=== PATIENT | male | born 1960 | race Caucasian/White ===

== ENCOUNTER 2017-11-21 15:35 | Emergency (ER) | payer OTHER ==
[~2017-11-21] VITALS: Ht 180.3 cm; Wt 99.8 kg
[2017-11-21] MEDS ORDERED: LOSA50TA72 PO (15:42)
--- NOTE | 2017-11-21 15:43 | ER Report ---
History and Physical Time Seen By MD: 15:43 HPI/ROS CHIEF COMPLAINT: Headache HISTORY OF PRESENT ILLNESS: This is a 57-year-old male who presents to the emergency department for a headache. 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 Patient also states that since then he's had upper and lower back pain, as well as a left-sided headache, mild blurred vision to the left side as well as posterior scalp pain. Patient denies shortness of breath, chest pain, nausea, vomiting, diarrhea denies urinary symptoms. Patient also states that he did have a mild bloody nose out of the left nostril following the injury but has since then resolved. Patient also states that he's been taking some medication that has a lot of aspirin in it for his headache since yesterday. REVIEW OF SYSTEMS: Constitutional: No fever, no chills. Eyes: No discharge. ENT: No sore throat. Cardiovascular: No chest pain, no palpitations. Respiratory: No cough, no shortness of breath. Gastrointestinal: No abdominal pain, no vomiting. Genitourinary: No hematuria. Musculoskeletal: As above. Skin: No rashes. Neurological: As above. 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 Hypertension, diverticulitis, colectomy. Reviewed Nurses Notes: Yes Constitutional Vital Sign - Last 24 Hours 11/21/17 11/21/17 11/21/17 15:40 16:47 17:00 Temp 98.7 Pulse 100 59 Resp 18 B/P (MAP) 145/95 148/105 (119) 142/100 (114) Pulse Ox 95 90 O2 Delivery Room Air Physical Exam General Appearance: The patient is alert, has no immediate need for airway protection and no signs of toxicity. Eyes: Pupils equal and round no pallor or injection. ENT, Mouth: Mucous membranes are moist. No hemotympanum. Respiratory: There are no retractions, lungs are clear to auscultation. Cardiovascular: Regular rate and rhythm, no murmurs, clicks or rubs. Gastrointestinal: Abdomen is soft with tenderness to the right abdomen with palpation, no masses, bowel sounds normal. Neurological: Alert and oriented 4. Moving all x-rays. Following all commands. No focal neuro deficits. Cranial nerves II through XII intact. Skin: Warm and dry, no rashes. Musculoskeletal: C-spine tenderness, no crepitus or step-offs noted, thoracic and lumbar discomfort no crepitus, bruising or step-offs noted. Posterior head pain no depressions, crepitus or hematomas noted. Extremities Left elbow pain, is able to supinate and pronate. DIFFERENTIAL DIAGNOSIS: After history and physical exam differential diagnosis was considered for head injury including but not limited to concussion, skull fracture, intraparenchymal contusion, subarachnoid, subdural and epidural hematoma. Medical Decision Making EKG/Imaging Imaging [place] [facility] [place]: Cresencio Mann : 1960 Visit/Account:[id number] Date of Sevice: 11/21/2017 Exam type: THORACIC SPINE 3 VIEWS History: fall, back pain Comparison: None. Findings: There is no definitive acute fracture of the thoracic spine. Overlapping tissues are noted on the lateral film is normal AP alignment. Heart size appears slightly prominent. Lung parenchyma is unremarkable. Radiopaque density overlies the T9 vertebral body. IMPRESSION: 1. Slightly limited study due to overlapping soft tissues but no definite acute fracture of the thoracic spine. Report Dictated By: Jayson Hinds MD at 11/21/2017 4:53 PM Report E-Signed By: Jayson Hinds MD at 11/21/2017 4:55 PM WSN:[id number] [place] [facility] [place] Patient: Cresencio Mann : 1960 Visit/Account:[id number] Date of Sevice: 11/21/2017 Exam type: 3 views lumbar spine History: fall, back pain Comparison: None. Findings: There are 5 nonrib-bearing lumbar vertebral bodies. AP alignment is appropriate. No acute fracture. Degenerative changes are noted particularly L5- S1 with significant loss of joint space. Numerous surgical clips overlie the abdomen. Soft tissues demonstrate some possible stones overlying the right kidney. IMPRESSION: 1. No acute fracture of the lumbar spine. 2. Degenerative changes noted L5-S1. 3. Possible stones overlie the right kidney. Report Dictated By: Jayson Hinds MD at 11/21/2017 4:55 PM Report E-Signed By: Jayson Hinds MD at 11/21/2017 4:56 PM WSN:[id number] ED Course/Re-evaluation ED Course The patient was admitted to a room. A history of physical were obtained. Differential diagnoses were considered. Patient was placed in a c-collar upon arrival. A head CT were obtained. Thoracic and lumbar and left elbow x-ray were obtained. Patient was given 60 mg IM and Norflex, thousand milligrams by mouth Tylenol. The head and neck CT were negative for any acute findings. There were some chronic degenerative changes noted to the cervical spine. The thoracic and lumbar and elbow were unremarkable. The results were reviewed with the patient he was relieved that there were no acute findings. The patient was given a prescription for Robaxin. Is also instructed to take ibuprofen or Tylenol as needed for the pain. Patient was also instructed to follow-up with an orthopedist when he returns home. The patient was also instructed to follow up with the nearest emergency department if he has any other concerns. The patient had no other questions or concerns and was discharged home. Decision to Disposition Date: Nov 21, 2017 Decision to Disposition Time: 17:37 Depart Departure Latest Vital Signs Vital Signs Date Time Temp Pulse Resp B/P (MAP) Pulse Ox O2 Delivery O2 Flow Rate FiO2 11/21/17 17:00 59 142/100 (114) 90 11/21/17 15:40 98.7 18 Room Air Impression: Primary Impression: Concussion Additional Impressions: Back pain Left elbow pain Condition: Improved Disposition: HOME OR SELF-CARE New Scripts Methocarbamol (ROBAXIN) 500 Mg Tablet 1500 MG PO TID, #20 TAB Prov: NELLI ACEVES DATE NIGHT SITTER-BC 11/21/17 Patient Instructions: Back Pain (ED), Concussion (ED) Additional Instructions: Drink plenty of water. Get plenty of rest. Take the medications as indicated. Take ibuprofen as needed for pain. Consider following up with an orthopedist when you return home, for the degenerative disc concerns. If you are having worsening symptoms while you are driving home please follow up in the nearest ED. Problem Qualifiers Primary Impression: Concussion Encounter type: initial encounter Loss of consciousness presence/duration: with LOC of 30 min or less Qualified Codes: S06.0X1A - Concussion with loss of consciousness of 30 minutes or less, initial encounter Additional Impressions: Back pain Back pain location: low back pain Chronicity: acute Back pain laterality: bilateral Sciatica presence: without sciatica Qualified Codes: M54.5 - Low back pain NELLI ACEVES-IAIN Nov 21, 2017 15:43
[2017-11-21] MEDS ORDERED: ACETAMINOPHEN 500 MG TAB PO ONE (16:05)
[2017-11-21] MEDS ORDERED: ORPHENADRINE 60MG/2ML INJ IM ONE (16:05)
--- NOTE | 2017-11-21 16:59 | RADIOLOGY IMAGING REPORT ---
FACILITY[place] [facility] [place]IENT NAME: Cresencio Mann : 1960 MR: [id number] V: [id number] EXAM DATE: ORDERING PHYSICIAN: NELLI ACEVES TECHNOLOGIST: Location: [facility] [place] Patient: Cresencio Mann : 1960 Visit/Account:[id number] Date of Sevice: 11/21/2017 Exam type: 3 views lumbar spine History: fall, back pain Comparison: None. Findings: There are 5 nonrib-bearing lumbar vertebral bodies. AP alignment is appropriate. No acute fracture. D egenerative changes are noted particularly L5-S1 with significant loss of joint space. Numerous surgical clips overlie the abdomen. Soft tissues demonstrate some possible stones overlying the right kidney. IMPRESSION: 1. No acute fracture of the lumbar spine. 2. Degenerative changes noted L5-S1. 3. Possible stones overlie the right kidney. Report Dictated By: Jayson Hinds MD at 11/21/2017 4:55 PM Report E-Signed By: Jayson Hinds MD at 11/21/2017 4:56 PM WSN:[id number]
--- NOTE | 2017-11-21 16:59 | RADIOLOGY IMAGING REPORT ---
FACILITY: [facility] - [place] PATIENT NAME: Cresencio Mann : 1960 MR: [id number] V: [id number] EXAM DATE: ORDERING PHYSICIAN: NELLI ACEVES TECHNOLOGIST: Location: [facility] Patient: Cresencio Mann : 1960 Visit/Account:[id number] Date of Sevice: 11/21/2017 Exam type: THORACIC SPINE 3 VIEWS History: fall, back pain Comparison: None. Findings: There is no definitive acute fracture of the thoracic spine. Overlapping tissues are noted on the lat eral film is normal AP alignment. Heart size appears slightly prominent. Lung parenchyma is unremarka ble. Radiopaque density overlies the T9 vertebral body. IMPRESSION: 1. Slightly limited study due to overlapping soft tissues but no definite acute fracture of the thora cic spine. Report Dictated By: Jayson Hinds MD at 11/21/2017 4:53 PM Report E-Signed By: Jayson Hinds MD at 11/21/2017 4:55 PM WSN:[id number]
[2017-11-21 17:00] VITALS: BP 142/100
--- NOTE | 2017-11-21 17:16 | RADIOLOGY IMAGING REPORT ---
[place] [facility] [place] Cresencio Mann : 1960 MR: [id number] V: [id number] EXAM DATE: ORDERING PHYSICIAN: NELLI ACEVES TECHNOLOGIST: Location: [facility] - [place], [place] Patient: Cresencio Mann : 1960 Visit/Account:[id number] Date of Sevice: 11/21/2017 EXAMINATION: CT HEAD AND CERVICAL SPINE WITHOUT CONTRAST COMPARISON: None available HISTORY: Fall. Head pain. Possible loss of consciousness. PROCEDURE: Noncontrast CT from the vertex through the skull base and multiplanar noncontrast cervical spine. One of the following dose optimization techniques was utilized in the performance of this exa m: Automated exposure control; adjustment of the mA and/or kV according to the patient's size; or use of an iterative reconstruction technique. Specific details can be referenced in the facility's rad ioly CT exam operational policy. FINDINGS: CT head without contrast: Brain volume: Age-appropriate volume. Hemorrhage/extra-axial fluid: No intracranial hemorrhage or extra-axial fluid collection. Mass effect/midline shift/edema: None. Ischemia: Oliva-white differentiation is preserved. Ventricles and basal cisterns: Ventricle size is within normal limits. Basal cisterns are open. Posterior fossa: Negative. Vessels: Negative. Calvarium, skull base, and scalp: Negative. Visualized sinuses and orbits: Old postoperative change along the right lateral orbit and maxillary s inus. Chronic appearing irregularity of the right nasal bone. No acute abnormality. CT cervical spine without contrast: Alignment: Mild straightening of the cervical curvature is favored to be due to either positioning, m uscle spasm, or degenerative change. No acute malalignment. Cranio-cervical junction: Moderate degenerative change at the atlantodens interval. No acute malalign ment. Vertebral bodies: No fracture. Posterior elements: Facet alignment is within normal limits with mild multilevel facet arthropathy. N o posterior neural arch fracture. Disc spaces: C5-C6 and C6-C7 mild to moderate degenerative disc disease. Posterior disc and osteophyt e complexes at these levels are associated with at least mild canal narrowing. Additionally, uncovert ebral joint hypertrophy results in severe narrowing of the bilateral foramina at C6-C7 and moderately severe narrowing of the foramina at C5-C6. Hardware: None. Soft tissues: Negative. Visualized upper chest: Negative. IMPRESSION: 1. No intracranial hemorrhage or mass effect. 2. No CT findings of acute ischemia. 3. No cervical spine fracture or malalignment. 4. Cervical spine degenerative disc disease. As further detailed above, there is severe narrowing of the C6-C7 bilateral neural foramina. Report Dictated By: Saeed Wheatley MD at 11/21/2017 5:03 PM Report E-Signed By: Saeed Wheatley MD at 11/21/2017 5:12 PM WSN:[id number]
--- NOTE | 2017-11-21 17:17 | RADIOLOGY IMAGING REPORT ---
FACILITY: [facility] - [place] PATIENT NAME: Cresencio Mann : 1960 MR: [id number] V: [id number] EXAM DATE: ORDERING PHYSICIAN: NELLI ACEVES TECHNOLOGIST: Location: [facility] - [place] Patient: Cresencio Mann : 1960 Visit/Account:[id number] Date of Sevice: 11/21/2017 EXAMINATION: CT HEAD AND CERVICAL SPINE WITHOUT CONTRAST COMPARISON: None available HISTORY: Fall. Head pain. Possible loss of consciousness. PROCEDURE: Noncontrast CT from the vertex through the skull base and multiplanar noncontrast cervical spine. One of the following dose optimization techniques was utilized in the performance of this exa m: Automated exposure control; adjustment of the mA and/or kV according to the patient's size; or use of an iterative reconstruction technique. Specific details can be referenced in the facility's rad ioly CT exam operational policy. FINDINGS: CT head without contrast: Brain volume: Age-appropriate volume. Hemorrhage/extra-axial fluid: No intracranial hemorrhage or extra-axial fluid collection. Mass effect/midline shift/edema: None. Ischemia: Oliva-white differentiation is preserved. Ventricles and basal cisterns: Ventricle size is within normal limits. Basal cisterns are open. Posterior fossa: Negative. Vessels: Negative. Calvarium, skull base, and scalp: Negative. Visualized sinuses and orbits: Old postoperative change along the right lateral orbit and maxillary s inus. Chronic appearing irregularity of the right nasal bone. No acute abnormality. CT cervical spine without contrast: Alignment: Mild straightening of the cervical curvature is favored to be due to either positioning, m uscle spasm, or degenerative change. No acute malalignment. Cranio-cervical junction: Moderate degenerative change at the atlantodens interval. No acute malalign ment. Vertebral bodies: No fracture. Posterior elements: Facet alignment is within normal limits with mild multilevel facet arthropathy. N o posterior neural arch fracture. Disc spaces: C5-C6 and C6-C7 mild to moderate degenerative disc disease. Posterior disc and osteophyt e complexes at these levels are associated with at least mild canal narrowing. Additionally, uncovert ebral joint hypertrophy results in severe narrowing of the bilateral foramina at C6-C7 and moderately severe narrowing of the foramina at C5-C6. Hardware: None. Soft tissues: Negative. Visualized upper chest: Negative. IMPRESSION: 1. No intracranial hemorrhage or mass effect. 2. No CT findings of acute ischemia. 3. No cervical spine fracture or malalignment. 4. Cervical spine degenerative disc disease. As further detailed above, there is severe narrowing of the C6-C7 bilateral neural foramina. Report Dictated By: Saeed Wheatley MD at 11/21/2017 5:03 PM Report E-Signed By: Saeed Wheatley MD at 11/21/2017 5:12 PM WSN:[id number]
--- NOTE | 2017-11-21 17:30 | RADIOLOGY IMAGING REPORT ---
FACILITY: [facility] [place] PATIENT NAME: Cresencio Mann : 1960 MR: [id number] V: [id number] EXAM DATE: ORDERING PHYSICIAN: RAEGAN COOPER TECHNOLOGIST: [place] [facility] [place] Cresencio [place] : 1960 Visit/Account:[id number] Date of Sevice: 11/21/2017 3 views left elbow Indication: Fall. Comparison: None Available Findings: No evidence of fracture, dislocation, or acute osseous abnormality left elbow. No evidence of elbow joint effusion. There is no focal soft tissue abnormality. No evidence of radiopaque foreign body. IMPRESSION: 1. No acute osseous abnormality of the left elbow. Report Dictated By: Hesham Regan MD at 11/21/2017 5:26 PM Report E-Signed By: Hesham Regan MD at 11/21/2017 5:26 PM WSN:[id number]
[2017-11-21] MEDS ORDERED: METH-542 PO (17:40)
== END 2017-11-21 17:43 | disposition home or self-care (01) ==
LOC: ER 15:41
DX: S06.0X1A Concussion with loss of consciousness of 30 minutes or less, initial encounter (principal); M54.5 Low back pain; M25.522 Pain in left elbow
CPT/HCPCS: 70450; 72072; 72100; 72125; 73080; 96372; 99283; J2360